=== PATIENT | male | born 1955 | race Caucasian/White ===

== ENCOUNTER 2017-05-31 23:49 | Emergency (ER) | payer BC ==
[2017-06-01 02:12] LABS: Bilirubin,Urine NEG (Negative); Blood,Urine NEG (Negative); Ketones,Urine NEG (Negative); Leukocyte Esterase,Urine NEG (Negative); Mucus,Urine FEW /HPF; Nitrite,Urine NEG (Negative); Protein,Urine <15 mg/dL mg/dL (Negative); WBC,Urine < 1.0 /HPF (0.0-6.0)
[2017-06-01 02:18] LABS: Basophils % (Auto) 0.2 % (0.0-1.8); Eosinophils % (Auto) 2.1 % (0.0-4.3); Hematocrit 48.4 % (35.5-45.6); Hemoglobin 16.8 gm/dl (11.8-15.2); Mean Corpuscular HGB Conc 35 % (32-34); Mean Corpuscular Hemoglobin 31 pg (28-32); Mean Corpuscular Volume 89 fl (84-94); Platelet Count 132 K/mm3 (140-440); Red Blood Count 5.42 M/mm3 (3.65-5.03); Red Cell Distribution Width 13.9 % (13.2-15.2); White Blood Count 13.2 K/mm3 (4.5-11.0)
[2017-06-01 02:38] LABS: Alanine Aminotransferase 31 units/L (7-56); Albumin 4.6 g/dL (3.9-5); Albumin/Globulin Ratio 1.5 %; Alkaline Phosphatase 95 units/L (35-129); Anion Gap 16 mmol/L; BUN/Creatinine Ratio 14; Blood Urea Nitrogen 11 mg/dL (9-20); Calcium 9.9 mg/dL (8.4-10.2); Carbon Dioxide 31 mmol/L (22-30); Glucose 141 mg/dL (75-100); Lipase 33 units/L (13-60); Potassium 4.1 mmol/L (3.6-5.0); Sodium 140 mmol/L (137-145); Total Protein 7.7 g/dL (6.3-8.2)
[2017-06-01] MEDS ORDERED: NACL ONE (04:08)
[2017-06-01] MEDS ORDERED: ZOFRAN IV ONE (04:52)
[2017-06-01] MEDS ORDERED: MORPHINE IV ONE (04:52)
[2017-06-01] MEDS ORDERED: ceFAZolin 1 GM in NACL 0.9% 20 ML IV ONE (05:00)
--- NOTE | 2017-06-01 05:25 | Emergency Department Report ---
<TAJ RODRIGUEZ - Last Filed: 06/01/17 05:49> ED General Adult HPI - General Chief complaint: Abdominal Pain Stated complaint: ABDOMINAL PAIN Time Seen by Provider: 06/01/17 04:44 Source: patient, EMS Mode of arrival: Stretcher Limitations: No Limitations - History of Present Illness Initial comments: 61 yo m Patient here for evaluation of febrile illness complaining of diffuse abdominal pain especially to the right lower quadrant after he bumped it in his cab of his semi-tractor trailer. 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 He denies nausea vomiting no urinary complaints no diarrhea. States generalized abdominal pain" along left. Worse for 2 days -: Gradual, days(s) Location: abdomen Radiation: non-radiation - Related Data Previous Rx's Medication Instructions Recorded Last Taken Type Dicyclomine [Bentyl] 10 mg PO QID PRN #20 capsule 06/01/17 Unknown Rx Ondansetron [Zofran Odt] 4 mg PO Q8HR PRN #20 tab.rapdis 06/01/17 Unknown Rx Allergies Allergy/AdvReac Type Severity Reaction Status Date / Time No Known Allergies Allergy Unverified 06/01/17 01:29 ED Review of Systems ROS: Stated complaint: ABDOMINAL PAIN Other details as noted in HPI Comment: All other systems reviewed and negative Constitutional: other (feels hot) Respiratory: no symptoms reported. denies: shortness of breath, SOB with exertion, SOB at rest, stridor, wheezing Cardiovascular: denies: chest pain, palpitations, dyspnea on exertion, orthopnea , edema, syncope, paroxysmal nocturnal dyspnea Gastrointestinal: abdominal pain. denies: constipation, hematemesis, melena, hematochezia Genitourinary: denies: frequency, hematuria, discharge, testicular pain, testicular mass Musculoskeletal: denies: joint swelling, arthralgia Neurological: denies: headache, weakness, numbness, paresthesias, confusion, abnormal gait Other: Previous surgery cholecystectomy history of hypertension history of GERD history of pouches on his bowels. ED Past Medical Hx - Past Medical History Previous Medical History?: Yes Hx Hypertension: Yes Hx GERD: Yes - Social History Smoking Status: Never Smoker - Medications Home Medications: Home Medications Medication Instructions Recorded Confirmed Last Taken Type Dicyclomine [Bentyl] 10 mg PO QID PRN #20 capsule 06/01/17 Unknown Rx Ondansetron [Zofran Odt] 4 mg PO Q8HR PRN #20 tab.rapdis 06/01/17 Unknown Rx ED Physical Exam - General Limitations: No Limitations General appearance: alert - Head Head exam: Present: atraumatic, normocephalic, normal inspection - Eye Eye exam: Present: PERRL, EOMI - ENT ENT exam: Present: normal exam - Neck Neck exam: Present: normal inspection. Absent: tenderness, meningismus, lymphadenopathy, thyromegaly - Respiratory Respiratory exam: Present: normal lung sounds bilaterally. Absent: respiratory distress, wheezes, rales, rhonchi, stridor, chest wall tenderness, accessory muscle use - Cardiovascular Cardiovascular Exam: Present: regular rate, normal rhythm, normal heart sounds - GI/Abdominal GI/Abdominal exam: Present: soft, tenderness (rlq>llq, "HX of pouches on my colon"), other (erythema to abd wall). Absent: rebound, mass, pulsatile mass - Extremities Exam Extremities exam: Present: normal inspection, normal capillary refill. Absent: pedal edema, joint swelling, calf tenderness - Back Exam Back exam: Present: normal inspection. Absent: CVA tenderness (L), paraspinal tenderness, vertebral tenderness - Neurological Exam Neurological exam: Present: alert, altered, oriented X3, CN II-XII intact, normal gait. Absent: motor sensory deficit ED Course Vital Signs 05/31/17 06/01/17 06/01/17 23:52 01:33 05:00 Temperature 98.1 F 98.1 F Pulse Rate 96 H 94 H Respiratory 18 18 20 Rate Blood Pressure 151/104 151/104 O2 Sat by Pulse 93 97 Oximetry 06/01/17 06/01/17 06/01/17 05:33 05:46 06:00 Temperature Pulse Rate 106 H 109 H 102 H Respiratory 16 20 19 Rate Blood Pressure 132/82 109/75 O2 Sat by Pulse 93 91 Oximetry 06/01/17 06:06 Temperature 98.4 F Pulse Rate Respiratory Rate Blood Pressure O2 Sat by Pulse Oximetry - Reevaluation(s) Reevaluation #1: 06/01/17 05:43 Patient here for evaluation of abdominal pain. CT scan is pending. Patient does haveelevated WBC, and will need further evaluation pending CT scan results which will be signed out to oncoming physician for further evaluation. ED Medical Decision Making - Lab Data Result diagrams: 06/01/17 01:48 06/01/17 01:48 Critical care attestation.: If time is entered above; I have spent that time in minutes in the direct care of this critically ill patient, excluding procedure time. ED Disposition Clinical Impression: Abdominal pain Disposition: - TO HOME OR SELFCARE Condition: Stable Instructions: Cirrhosis (ED) Additional Instructions: Follow-up with a other spatial scientist within the next 7-[address] scan today demonstrated numerous incidental findings in the liver, which require follow-up with an outpatient other spatial scientist. Not following up as recommended may resultant undiagnosed tumor, cancer, malignancy. Avoid consumption of alcohol, acetaminophen. Return to the ER right away with new pain, worsening pain, migration of pain, fevers, chills, lethargy, irritability, projectile vomiting, change in mental status, confusion, inability to tolerate liquid feeds. Referrals: JOCELYNN CARRASQUILLO MD [Primary Care Provider] - 3-5 Days DARRIN SILVERMAN MD [Staff Physician] - 3-5 Days Time of Disposition: 06:00 (s.o. oncsarah montez) <JOCELYNN DUMONT - Last Filed: 06/01/17 06:53> ED Course - Reevaluation(s) Reevaluation #2: 06/01/17 06:50 Patient is reevaluated by myself. CT scan findings reviewed, demonstrate cirrhosis, nonspecific liver findings. On my personal history, patient reports a history of cirrhosis, reports being treated medically in [place], and is now currently following with a other spatial scientist in [place]. His tachycardia has resolved, he has no abdominal tenderness, with the exception of right mid flank tenderness with deep palpation. CT scan findings reviewed and appreciated, does not have any historical or physical exam findings to suggest pneumonia, the patient will be given copy of his laboratory studies, CT scan report, and he will be instructed to follow-up with his outpatient other spatial scientist for further evaluation and management, to exclude cancer, tumor, malignancy. Given lack of diffuse abdominal tenderness, think bacterial peritonitis is very unlikely. Extensive discussion had with the patient. To me he denies chest pain or shortness of breath. ED Medical Decision Making - Lab Data Result diagrams: 06/01/17 01:48 06/01/17 01:48 Vital Signs 05/31/17 06/01/17 06/01/17 23:52 01:33 05:00 Temperature 98.1 F 98.1 F Pulse Rate 96 H 94 H Respiratory 18 18 20 Rate Blood Pressure 151/104 151/104 O2 Sat by Pulse 93 97 Oximetry 06/01/17 06/01/17 06/01/17 05:33 05:46 06:00 Temperature Pulse Rate 106 H 109 H 102 H Respiratory 16 20 19 Rate Blood Pressure 132/82 109/75 O2 Sat by Pulse 93 91 Oximetry 06/01/17 06:06 Temperature 98.4 F Pulse Rate Respiratory Rate Blood Pressure O2 Sat by Pulse Oximetry Lab Results 06/01/17 06/01/17 06/01/17 Range/Units 01:40 01:48 01:48 WBC 13.2 H (4.5-11.0) K/mm3 RBC 5.42 H (3.65-5.03) M/mm3 Hgb 16.8 H (11.8-15.2) gm/dl Hct 48.4 H (35.5-45.6) % MCV 89 (84-94) fl MCH 31 (28-32) pg MCHC 35 H (32-34) % RDW 13.9 (13.2-15.2) % Plt Count 132 L (140-440) K/mm3 Lymph % (Auto) 8.1 L (13.4-35.0) % [place] % (Auto) 8.4 H (0.0-7.3) % Eos % (Auto) 2.1 (0.0-4.3) % Baso % (Auto) 0.2 (0.0-1.8) % Lymph # 1.1 L (1.2-5.4) K/mm3 [place] # 1.1 H (0.0-0.8) K/mm3 Eos # 0.3 (0.0-0.4) K/mm3 Baso # 0.0 (0.0-0.1) K/mm3 Seg Neutrophils % 81.2 H (40.0-70.0) % Seg Neutrophils # 10.8 H (1.8-7.7) K/mm3 Sodium 140 (137-145) mmol/L Potassium 4.1 (3.6-5.0) mmol/L Chloride 97.0 L (98-107) mmol/L Carbon Dioxide 31 H (22-30) mmol/L Anion Gap 16 mmol/L BUN 11 (9-20) mg/dL Creatinine 0.8 (0.8-1.5) mg/dL Estimated GFR > 60 ml/min BUN/Creatinine Ratio 14 % Glucose 141 H (75-100) mg/dL Calcium 9.9 (8.4-10.2) mg/dL Total Bilirubin 1.30 H (0.1-1.2) mg/dL AST 26 (5-40) units/L ALT 31 (7-56) units/L Alkaline Phosphatase 95 (35-129) units/L C-Reactive Protein (0.00-1.30) mg/dL Total Protein 7.7 (6.3-8.2) g/dL Albumin 4.6 (3.9-5) g/dL Albumin/Globulin Ratio 1.5 % Lipase 33 (13-60) units/L Urine Color Yellow (Yellow) Urine Turbidity Clear (Clear) Urine pH 7.0 (5.0-7.0) Ur Specific [place] 1.020 (1.003-1.030) Urine Protein <15 mg/dl (Negative) mg/dL Urine Glucose (UA) Neg (Negative) mg/dL Urine Ketones Neg (Negative) mg/dL Urine Blood Neg (Negative) Urine Nitrite Neg (Negative) Urine Bilirubin Neg (Negative) Urine Urobilinogen 4.0 (<2.0) mg/dL Ur Leukocyte Esterase Neg (Negative) Urine WBC (Auto) < 1.0 (0.0-6.0) /HPF Urine RBC (Auto) 8.0 (0.0-6.0) /HPF U Epithel Cells (Auto) (0-13.0) /HPF Urine Mucus Few /HPF 06/01/17 06/01/17 Range/Units 01:48 05:39 WBC (4.5-11.0) K/mm3 RBC (3.65-5.03) M/mm3 Hgb (11.8-15.2) gm/dl Hct (35.5-45.6) % MCV (84-94) fl MCH (28-32) pg MCHC (32-34) % RDW (13.2-15.2) % Plt Count (140-440) K/mm3 Lymph % (Auto) (13.4-35.0) % [place] % (Auto) (0.0-7.3) % Eos % (Auto) (0.0-4.3) % Baso % (Auto) (0.0-1.8) % Lymph # (1.2-5.4) K/mm3 [place] # (0.0-0.8) K/mm3 Eos # (0.0-0.4) K/mm3 Baso # (0.0-0.1) K/mm3 Seg Neutrophils % (40.0-70.0) % Seg Neutrophils # (1.8-7.7) K/mm3 Sodium (137-145) mmol/L Potassium (3.6-5.0) mmol/L Chloride (98-107) mmol/L Carbon Dioxide (22-30) mmol/L Anion Gap mmol/L BUN (9-20) mg/dL Creatinine (0.8-1.5) mg/dL Estimated GFR ml/min BUN/Creatinine Ratio % Glucose (75-100) mg/dL Calcium (8.4-10.2) mg/dL Total Bilirubin (0.1-1.2) mg/dL AST (5-40) units/L ALT (7-56) units/L Alkaline Phosphatase (35-129) units/L C-Reactive Protein 0.90 (0.00-1.30) mg/dL Total Protein (6.3-8.2) g/dL Albumin (3.9-5) g/dL Albumin/Globulin Ratio % Lipase (13-60) units/L Urine Color Yellow (Yellow) Urine Turbidity Clear (Clear) Urine pH 7.0 (5.0-7.0) Ur Specific [place] 1.040 H (1.003-1.030) Urine Protein <15 mg/dl (Negative) mg/dL Urine Glucose (UA) Neg (Negative) mg/dL Urine Ketones Neg (Negative) mg/dL Urine Blood Neg (Negative) Urine Nitrite Neg (Negative) Urine Bilirubin Neg (Negative) Urine Urobilinogen < 2.0 (<2.0) mg/dL Ur Leukocyte Esterase Neg (Negative) Urine WBC (Auto) 1.0 (0.0-6.0) /HPF Urine RBC (Auto) 7.0 (0.0-6.0) /HPF U Epithel Cells (Auto) < 1.0 (0-13.0) /HPF Urine Mucus Few /HPF - Radiology Data Radiology results: report reviewed [facility] [address] [place] [address] Cat Scan Report Signed Patient: ESTEPHANIA HAYDEN MR#: [id number] : 1955 Acct:[id number] Age/Sex: 61 / M ADM Date: 05/31/17 Loc: ED Attending Dr: Ordering Physician: JANNET BIRD Date of Service: 06/01/17 Procedure(s): CT abdomen pelvis w con Accession Number(s): [id number] cc: JANNET BIRD FINAL REPORT EXAM: CT ABDOMEN PELVIS W CONTRAST. HISTORY: Abdominal and RLQ pain. History of diverticulitis. TECHNIQUE: Axial CT images of the abdomen and pelvis were obtained, following the administration of intravenous contrast only. Delayed axial images and coronal and sagittal reformatted images were also obtained. No prior studies are available for comparison. FINDINGS: There are findings of cirrhosis, with diffuse nodularity of the hepatic contour, right lobe atrophy/relative caudate lobe hypertrophy, and diffuse heterogeneity of the parenchyma. This includes a 1.2 cm patchy region of slightly increased enhancement in the anterior right hepatic lobe (series 3, image 44), and additional faint patchy slightly increased enhancement in the subcapsular posterior lateral right hepatic lobe, not seen on the delayed images. Nonspecific mild perihepatic fluid is seen adjacent to the posterior right inferior hepatic tip, which tracks inferiorly along the right paracolic gutter. The spleen is enlarged, in keeping with portal hypertension. The patient is status post cholecystectomy. The biliary tree, pancreas, adrenal glands, and kidneys are unremarkable. Evaluation of the bowel is limited due to lack of oral contrast. The stomach is collapsed, not well evaluated. There is no intestinal obstruction or free air. There are multiple diverticula in the distal descending and sigmoid colon, without evidence of acute diverticulitis. The appendix is air-filled, normal in appearance. The abdominal aorta is normal in caliber. There is a mildly enlarged 1.3 x 1.5 cm periportal lymph node, likely reactive. Additional subcentimeter periportal, central mesenteric, and retroperitoneal lymph nodes are noted, which do not meet size criteria for pathologic enlargement. There is no loculated fluid collection. The prostate gland is normal in size. The urinary bladder is unremarkable. There are moderate spondylotic and degenerative changes seen in the spine. There is trace 1-2 mm retrolisthesis of L1 relative to L2, and also of L4 relative to L5. There is mild subpleural consolidation at the right posterior lung base representing atelectasis and/or infiltrate. Additional linear areas of scarring or atelectasis are seen at the anterior left lower lobe, lingula, and right anterior lung base. There is a borderline enlarged 1.3 cm anterior right paraardiac lymph node IMPRESSION: 1. Left colonic diverticulosis, without evidence of acute diverticulitis. No intestinal obstruction or free air. 2. Normal CT appearance of the appendix. 3. Findings of cirrhosis, with diffuse heterogeneity of the hepatic parenchyma, including regions of relative increased enhancement in the right hepatic lobe. Correlation with AFP level is recommended, and MRI examination with and without contrast is recommended for more definitive evaluation, to exclude neoplasm. Associated splenomegaly. 4. Mild perihepatic fluid adjacent to the posterior right inferior hepatic tip, tracking inferiorly along the right paracolic gutter. 5. Mild subpleural consolidation at the right posterior lung base. Transcribed By: [facility] Dictated By: JL RILEY MD Electronically Authenticated By: JL RILEY MD Signed Date/Time: 06/01/17 0157 ED Disposition Is pt being admited?: No Does the pt Need Aspirin: No
[2017-06-01] MEDS ORDERED: TORADOL IV ONE (05:40)
[2017-06-01] MEDS ORDERED: NACL 0.9% 1000 ML 1,000 ML IV ONE (05:48)
[2017-06-01 05:58] LABS: Bilirubin,Urine NEG (Negative); Blood,Urine NEG (Negative); Ketones,Urine NEG (Negative); Leukocyte Esterase,Urine NEG (Negative); Mucus,Urine FEW /HPF; Nitrite,Urine NEG (Negative); Protein,Urine <15 mg/dL mg/dL (Negative); Urobilinogen,Urine < 2.0 mg/dL (<2.0)
--- NOTE | 2017-06-01 05:59 | Cat Scan Report ---
FINAL REPORT EXAM: CT ABDOMEN PELVIS W CONTRAST. HISTORY: Abdominal and RLQ pain. History of diverticulitis. TECHNIQUE: Axial CT images of the abdomen and pelvis were obtained, following the administration of intravenous contrast only. Delayed axial images and coronal and sagittal reformatted images were also obtained. No prior studies are available for comparison. FINDINGS: There are findings of cirrhosis, with diffuse nodularity of the hepatic contour, right lobe atrophy/relative caudate lobe hypertrophy, and diffuse heterogeneity of the parenchyma. This includes a 1.2 cm patchy region of slightly increased enhancement in the anterior right hepatic lobe (series 3, image 44), and additional faint patchy slightly increased enhancement in the subcapsular posterior lateral right hepatic lobe, not seen on the delayed images. Nonspecific mild perihepatic fluid is seen adjacent to the posterior right inferior hepatic tip, which tracks inferiorly along the right paracolic gutter. The spleen is enlarged, in keeping with portal hypertension. The patient is status post cholecystectomy. The biliary tree, pancreas, adrenal glands, and kidneys are unremarkable. Evaluation of the bowel is limited due to lack of oral contrast. The stomach is collapsed, not well evaluated. There is no intestinal obstruction or free air. There are multiple diverticula in the distal descending and sigmoid colon, without evidence of acute diverticulitis. The appendix is air-filled, normal in appearance. The abdominal aorta is normal in caliber. There is a mildly enlarged 1.3 x 1.5 cm periportal lymph node, likely reactive. Additional subcentimeter periportal, central mesenteric, and retroperitoneal lymph nodes are noted, which do not meet size criteria for pathologic enlargement. There is no loculated fluid collection. The prostate gland is normal in size. The urinary bladder is unremarkable. There are moderate spondylotic and degenerative changes seen in the spine. There is trace 1-2 mm retrolisthesis of L1 relative to L2, and also of L4 relative to L5. There is mild subpleural consolidation at the right posterior lung base representing atelectasis and/or infiltrate. Additional linear areas of scarring or atelectasis are seen at the anterior left lower lobe, lingula, and right anterior lung base. There is a borderline enlarged 1.3 cm anterior right paraardiac lymph node IMPRESSION: 1. Left colonic diverticulosis, without evidence of acute diverticulitis. No intestinal obstruction or free air. 2. Normal CT appearance of the appendix. 3. Findings of cirrhosis, with diffuse heterogeneity of the hepatic parenchyma, including regions of relative increased enhancement in the right hepatic lobe. Correlation with AFP level is recommended, and MRI examination with and without contrast is recommended for more definitive evaluation, to exclude neoplasm. Associated splenomegaly. 4. Mild perihepatic fluid adjacent to the posterior right inferior hepatic tip, tracking inferiorly along the right paracolic gutter. 5. Mild subpleural consolidation at the right posterior lung base.
[2017-06-01 07:03] VITALS: BP 109/74
== END 2017-06-01 07:04 | disposition home or self-care (01) ==
LOC: ED 23:49
DX: R10.84 Generalized abdominal pain (principal); I10 Essential (primary) hypertension; K21.9 Gastro-esophageal reflux disease without esophagitis
CPT/HCPCS: 36415; 74177; 80053; 81001; 83690; 85025; 86140; 96374; 96375; 99285; J0690; J1885; J2405; J7030; Q9967; J2270